=== PATIENT | male | born 1945 ===

== ENCOUNTER 2016-09-23 09:02 | Outpatient (CLI) | payer MEDICARE, OTHER ==
[2016-09-23 12:36] LABS: Bilirubin Negative (Negative); Blood, Urine Negative (Negative); Glucose, Urine (Dipstick) Negative (Negative); Ketone, Urine Negative (Negative); Nitrite Negative (Negative); Protein, Urine (Dipstick) Negative (Neg-Trace); Urobilinogen 0.2 mg/dL (0.2-1.0)
[2016-09-23 12:40] LABS: #Basophils 0.1 thou/uL (0.0-0.2); #Eosinphils 0.2 thou/uL (0.0-0.7); #Lymphocytes 1.7 thou/uL (1.20-3.40); #Monocytes 0.8 thou/uL (0.11-0.59); #Neutrophils 5.9 thou/uL (1.40-6.50); %Basophils 0.8 % (0.0-1.0); %Eosinophils 2.6 % (0.0-10.0); %Lymphocytes 19.8 % (21.0-51.0); %Monocytes 9.4 % (0.0-10.0); Hematocrit 38.3 % (42.0-52.0); Mean Platelet Volume 5.2 fL (7.4-10.4); Red Blood Cell (RBC) Count 4.32 mill/uL (4.70-6.10); White Blood Cell (WBC) Count 8.8 thou/uL (4.8-10.8)
[2016-09-23 13:02] LABS: ALT (SGPT) 19 U/L (0-55); AST (SGOT) 16 U/L (5-34); Alkaline Phosphatase 96 U/L (40-150); Anion Gap 15 mmol/L (10-20); BUN (Urea Nitrogen) 25 mg/dL (8.4-25.7); Bilirubin, Total 0.7 mg/dL (0.2-1.2); Calc. Creatinine Clearance 0 mL/min (70-130); Calcium 9.5 mg/dL (7.8-10.44); Carbon Dioxide 24 mmol/L (23-31); Chloride 105 mmol/L (98-107); Estimated GFR-MDRD 35; Globulin 2.9 g/dL (2.4-3.5); LDL Cholesterol, Calculated 85 mg/dL; Protein, Total 6.8 g/dL (5.8-8.1)
[2016-09-23 13:18] LABS: Hemoglobin A1c 8.2 % (4.0-6.0)
[2016-09-23 13:20] LABS: Bacteria/HPF Rare-Few HPF (None Seen); RBC/HPF 0-3 HPF (0-3); Squamous Epithelial 0-3 HPF (0-3); WBC/HPF 0-3 HPF (0-3)
[2016-09-23 18:04] LABS: Microalbumin Urine Less than 1.0 mg/dL (0.5-50.0)
== END 2016-09-23 09:03 ==
LOC: NAVSJIPCSP 09:02
PROVIDERS: ATTEND Internal Medicine
DX: Z12.5 Encounter for screening for malignant neoplasm of prostate (principal); E11.65 Type 2 diabetes mellitus with hyperglycemia; I11.9 Hypertensive heart disease without heart failure; Z79.899 Other long term (current) drug therapy
CPT/HCPCS: 36415; 80053; 80061; 81003; 81015; 82043; 83036; 85025; G0103

== ENCOUNTER 2016-12-28 08:26 | Outpatient (CLI) | payer MEDICARE, OTHER ==
[2016-12-28 12:50] LABS: Hemoglobin A1c 8.8 % (4.0-6.0)
== END 2016-12-28 08:27 ==
LOC: NAVSJIPCSP 08:26
PROVIDERS: ATTEND Internal Medicine
DX: E78.5 Hyperlipidemia, unspecified (principal); E11.65 Type 2 diabetes mellitus with hyperglycemia
CPT/HCPCS: 36415; 80061; 83036

== ENCOUNTER 2017-03-31 08:49 | Outpatient (CLI) | payer MEDICARE, OTHER ==
[2017-03-31 12:21] LABS: Hemoglobin A1c 8.7 % (4.0-6.0)
[2017-03-31 12:36] LABS: Cardiac Risk 3.2 (Less than 4.5)
[2017-03-31 18:59] LABS: Hep C IgG Ab Non-Reactive (NonReactive); Hep C Index 0.14 S/CO (0-0.79)
== END 2017-03-31 08:50 | disposition home or self-care (01) ==
LOC: NAVSJIPCSP 08:49
PROVIDERS: ATTEND Internal Medicine
DX: E78.5 Hyperlipidemia, unspecified (principal); E11.65 Type 2 diabetes mellitus with hyperglycemia; Z72.89 Other problems related to lifestyle; Z79.899 Other long term (current) drug therapy
CPT/HCPCS: 36415; 80061; 82550; 83036; 86803